=== PATIENT | female | born 1970 | race Caucasian/White ===

== ENCOUNTER 2018-07-30 15:51 | Outpatient (CLI) | payer OTHER ==
[2014-12-15 12:03] VITALS: BP 122/72
[2018-07-30 17:04] LABS: eGFR (Non-African) > 60
== END 2018-07-30 15:52 ==
LOC: RAD 15:51
PROVIDERS: ATTEND Family Medicine
DX: E11.9 Type 2 diabetes mellitus without complications (principal)
CPT/HCPCS: 36415; 80053; 80061; 83036